=== PATIENT | female | born 1935 | race Caucasian/White ===

== ENCOUNTER 2019-04-20 08:57 | Outpatient (CLI) | payer OTHER | END 2019-04-20 08:58 | disposition home or self-care (01) | LOC: RX STUDY 08:57 | DX: K30 Functional dyspepsia (principal); R13.19 Other dysphagia; K20.8 Other esophagitis; K21.9 Gastro-esophageal reflux disease without esophagitis; K44.9 Diaphragmatic hernia without obstruction or gangrene ==